=== PATIENT | male | born 1940 | race Caucasian/White ===

== ENCOUNTER 2016-11-06 05:46 | Inpatient (IN) | payer MEDICARE, OTHER ==
[2016-10-29 11:33] LABS: BASOPHILS 0.3 %; BASOPHILS ABSOLUTE 0.02 10/3/uL (0.0-0.16); EOSINOPHILS ABSOLUTE 0.34 10/3/uL (0.0-0.53); HEMATOCRIT 42.6 % (40.0-51.0); IMMATURE GRANULOCYTES 0.3 %; IMMATURE GRANULOCYTES ABSOLUTE 0.02 10/3/uL (0.0-0.11); LYMPHOCYTES 20.2 %; LYMPHOCYTES ABSOLUTE 1.38 10/3/uL (0.67-4.30); MEAN CORPUS HGB CONC 32.9 g/dL (32.0-36.0); MEAN CORPUSCULAR VOLUME 88.4 fL (80-100); MONOCYTES 9.8 %; MONOCYTES ABSOLUTE 0.67 10/3/uL (0.21-1.20); NEUTROPHILS 64.4 %; NEUTROPHILS ABSOLUTE 4.41 10/3/uL (2.02-8.40); RED CELL COUNT 4.82 10/6/uL (4.7-6.1); WHITE BLOOD CELLS 6.8 10/3/uL (4.5-10.5)
[2016-10-29 11:36] LABS: MANUAL DIFF NO %; PLATELET COUNT 148 10/3/uL (150-400)
[2016-10-29 11:39] LABS: INTERNATIONAL NORMAL RATI 1.1 UNITS (-); PROTIME (NOT ORD) 14.1 SEC (12.0-14.5)
[2016-10-29 12:01] LABS: % IRON SAT 36 % (20-50); A/G RATIO 1.1 (0.7-1.9); ALBUMIN 3.3 G/DL (3.5-5.0); ALKALINE PHOSPHATASE 153 U/L (45-117); BUN (BLOOD UREA NITROGEN) 19 MG/DL (6-23); CALCIUM, SERUM 8.6 MG/DL (8.5-10.4); CHLORIDE, SERUM 106 MMOL/L (96-112); CO2 (CARBON DIOXIDE) 26 MMOL/L (24-34); CREATININE 1.25 MG/DL (0.70-1.30); GFR AFRICAN AMERICAN 65 ML/MIN (>=60); GFR NON AFRICAN AMERICAN 56 ML/MIN (>=60); GLOBULIN 3.1 G/DL (2.5-4.1); GLUCOSE, SERUM 217 MG/DL (60-99); IRON BINDING CAPACITY 313 MCG/DL (250-450); IRON, SERUM 114 MCG/DL (35-150); POTASSIUM, SERUM 4.3 MMOL/L (3.5-5.3); SGOT(AST) 23 U/L (5-40); SGPT(ALT) 26 U/L (5-65); SODIUM, SERUM 141 MMOL/L (135-148); TOTAL BILIRUBIN 0.7 MG/DL (0-1.2); TOTAL PROTEIN 6.4 G/DL (6.0-8.5)
[2016-10-29 12:13] LABS: ASCORBIC ACID (UR NOT ORDER) NEG (NEG); BILIRUBIN, URINE NEGATIVE (NEG); KETONE, URINE NEGATIVE (NEG); LEUKOCYTE ESTERASE(NOT OR NEG (NEG); WBC (NOT ORDERED) (RFLEX) < 1 (0-5)
--- NOTE | ~2016-11-06 | OP ---
Record Of Operation [facility] [address] [place]. [address] NAME: MARCOS IBRAHIM : 42 STATUS : ADM IN PAT#: [id number] AGE: 76 ADM/REG DATE : 11/06/16 MR#: [id number] REPORT SERV DATE: 11/06/16 DICTATED BY: TERRI RAY DATE: 11/06/16 REPORT STATUS : Draft TRANSCRIBED BY: MODL DATE: 11/06/16 DATE OF PROCEDURE: 11/06/2016 PREOPERATIVE DIAGNOSES: 1. Coronary artery disease. 2. Acute on chronic, chronic systolic heart failure (ejection fraction of 30%). 3. History of previous transient ischemic attack. 4. Deep venous thrombosis with pulmonary embolism. 5. Type 2 qwn-ijckxpm-lvghvyhpe diabetes mellitus. 6. Left bundle branch block. 7. Obesity. POSTOPERATIVE DIAGNOSES: 1. Coronary artery disease. 2. Acute on chronic, chronic systolic heart failure (ejection fraction of 30%). 3. History of previous transient ischemic attack. 4. Deep venous thrombosis with pulmonary embolism. 5. Type 2 nec-uemrqxt-qvklqewmx diabetes mellitus. 6. Left bundle branch block. 7. Obesity. PROCEDURE PERFORMED: 1. Coronary artery bypass grafting x3, left internal mammary artery placed to left anterior descending, reverse saphenous vein graft placed to the first obtuse marginal, reverse saphenous vein graft placed to the terminal obtuse marginal vessel. 2. Endoscopic vein harvest, saphenous vein from the right thigh. 3. Transesophageal echocardiography. SURGEON: Terri Ray M.D. ASSISTANTS: Pramod Elizondo and Shaunna De La Fuente. ANESTHESIA: General with Dr. Miner. GREENHOUSE ASSISTANT: Jewel Rivera M.D. PRIMARY CARE PHYSICIAN: Robert Singer M.D. INDICATIONS: This is a 76-year-old gentleman, who was having possible TIAs last fall. He had been evaluated extensively with Neurology and was recently seen by Dr. Rivera. He had a left bundle branch that was new on electrocardiography. He underwent echocardiogram that demonstrated reduced ventricular function with ejection fraction of 30%. He was recommended to have a cardiac catheterization which was performed that demonstrated significant two- vessel coronary artery disease. The tight lesions in the circumflex and LAD system along with distal left main coronary stenosis. We were asked to see the patient for possible coronary artery bypass grafting. Carotid ultrasound study demonstrated grade 1 disease Record Of Operation [facility] [address] [place]. [address] NAME: MARCOS IBRAHIM : 42 STATUS : ADM IN PAT#: [id number] AGE: 76 ADM/REG DATE : 11/06/16 MR#: [id number] REPORT SERV DATE: 11/06/16 DICTATED BY: TERRI RAY DATE: 11/06/16 REPORT STATUS : Draft TRANSCRIBED BY: TYRELL DATE: 11/06/16 bilaterally. Reportedly, he had an MRI of the brain which showed no acute changes in May of last year. We discussed possible coronary bypass grafting with the patient and his family. After discussing the operation, its indications, risks, they wished to proceed. STS predicted mortality of 1.5% and morbidity and mortality of 15% were shared with the family. FINDINGS AT OPERATION: 1. Cross-clamp time of 70 minutes, total pump time 84 minutes. 2. The LAD was 1.75 mm heavily diseased vessel. A 3 mm RIDDLE was anastomosed to it with good runoff. 3. The first obtuse marginal was 2 mm and moderately diseased. A 4 mm RSVG was anastomosed to it with good runoff. 4. The terminal obtuse marginal vessel was 1.5 mm and moderately diseased. A 4 mm RSVG was anastomosed to it with good runoff. Unfortunately, this vein graft was not long enough to reach the ascending aorta, and therefore, it was piggybacked into the side of the vein graft going to the first obtuse marginal vessel. 5. This patient had extensively diseased coronary vessels. 6. The vein quality was okay in the thigh. There was areas of old thrombus attached to the sidewall of the vessel, however, there was good flow through all the grafts. 7. MONIKA demonstrated reduced ventricular function with no significant mitral or aortic valvular pathology. PATHOLOGIC SPECIMENS: None. DESCRIPTION OF PROCEDURE: The patient was brought to the operating suite, general anesthesia was induced, and airway was secured with an endotracheal tube. Lines were secured by Anesthesia. Wade catheter was placed. The patient's chest, abdomen, groin, and legs prepped with Hibiclens and ChloraPrep and draped with Ioban and sterile sheets. MONIKA probe was placed by Dr. Miner and examination was carried out in my attendance. There was anterolateral and posterior wall hypokinesis with no significant valvular pathology. The saphenous vein was harvested from the right thigh using endoscopic technique. Briefly, the vein was cut directly down upon through a 2 cm incision placed at the medial aspect of the right knee. Then, using VasoView trocars, the vessel was dissected from the surrounding subcutaneous tissue and fat. The side branches were identified, ligated, and divided with cautery. Once adequate length of vein had been dissected, a counter incision was made up in the groin and the vein was ligated, divided, and brought through the knee incision. The vein quality unfortunately was poor distally. There was old recanalized vein that was not really very good conduit for bypass material and this was removed. We continued to trim proximally on the vein until the lumen of the vein was at least 3 mm in diameter and there were no large plaque or evidence of old thrombus along the wall of the vessel. Then, a midline sternal incision was made and the sternum opened with a saw. The left hemithorax was elevated and the endothoracic fascia was incised. Side branch of the NIXON were clipped and divided. Once the NIXON was completely dissected, the patient was anticoagulated with heparin and chest tube was placed in the left pleural cavity. The NIXON was clipped and divided distally. There was good flow through the NIXON and its pedicle was Record Of Operation [facility] [id number] [facility] [place]. [address] NAME: MARCOS IBRAHIM : 42 STATUS : ADM IN [facility]#: [id number] AGE: 76 ADM/REG DATE : 11/06/16 MR#: [id number] REPORT SERV DATE: 11/06/16 DICTATED BY: TERRI RAY DATE: 11/06/16 REPORT STATUS : Draft TRANSCRIBED BY: MODL DATE: 11/06/16 infiltrated with papaverine. Next, the Emory retractor was placed in the pericardium over from the innominate vein to the diaphragm, where it was T'd and tacked to the side of the chest wall. Cannulation pursestring sutures were placed and cannulation was carried out in routine manner. A retrograde cardioplegia cannula was placed in the coronary sinus. When all was in readiness, the patient was placed on cardiopulmonary bypass. The distal targets were marked out on the heart as described in the findings. We searched for ramus intermedius vessel, but none was found. Then, a heart support was placed. The aorta was crossclamped and an initial dose cold blood cardioplegia solution was given in a combination of antegrade and retrograde fashion, then in a retrograde manner following proximal anastomoses. Following the first dose of cardioplegia, the heart was positioned for the first obtuse marginal graft. Arteriotomy was made. The vein graft was trimmed and anastomosed to it with 7-0 Prolene. The vein graft was measured to the left side of the ascending aorta where it was divided. We then positioned the heart for the terminal obtuse marginal graft. The terminal obtuse marginal bifurcated and we selected the largest of the two branches. Arteriotomy was made and the vein graft was trimmed and anastomosed to it with 7-0 Prolene. Unfortunately, this vein graft was not long enough to reach the ascending aorta. Therefore, it was piggybacked into the side of the vein graft going to the first obtuse marginal. A small venotomy was made and venovenous anastomosis was constructed with 7-0 Prolene. Then, the proximal end of the first obtuse marginal vessel graft was anastomosed to a 4.5 mm punch aortotomy with a running suture of 6-0 Prolene. Another dose of cardioplegia was given and warming was begun. We then positioned the heart for the LAD graft. Arteriotomy was made in the distal LAD. The NIXON was brought out of the left chest through a notch in the pericardium over the pulmonary artery. The LAD was very heavily diseased. The NIXON was opened and anastomosed to the LAD with running suture of 8-0 Prolene. The endothoracic fascia was tacked to the epicardium. The patient was placed in Trendelenburg and final dose of warm blood cardioplegia was given in a retrograde fashion. Ventricular and atrial pacing wires were placed. Following the last dose cardioplegia and deairing of the aorta, the aortic cross clamp was removed. The distal and proximal anastomoses were inspected and made hemostatic. Doppler demonstrated good flow through the grafts. Inotropic agents were started and the heart was paced in AV sequential fashion at a rate of 80. Ventilation was begun and when the heart demonstrated good contractility, it was allowed to fill and eject. When deairing was completed, the ascending aortic root vent was removed and these pursestring sutures tied and reinforced. The patient was weaned from cardiopulmonary bypass with inotropic support. The venous cannula was removed and these pursestring sutures tied. MONIKA examination demonstrated still reduced, but overall improved ventricular function. There was no significant valvular pathology. Record Of Operation [facility] [facility] [id number] [place]. [address] NAME: MARCOS IBRAHIM : 42 STATUS : ADM IN [facility]#: [id number] AGE: 76 ADM/REG DATE : 11/06/16 MR#: [id number] REPORT SERV DATE: 11/06/16 DICTATED BY: TERRI RAY DATE: 11/06/16 REPORT STATUS : Draft TRANSCRIBED BY: TYRELL DATE: 11/06/16 Protamine was administered by Anesthesia and following a period of hemodynamic stability the aortic cannula was removed and these pursestring sutures tied and reinforced. The patient continued to do well and the chest was irrigated copiously with saline. Meticulous hemostasis was obtained. Hemasorb was placed along the cut edge of the sternum. Once hemostasis was assured, the pericardium was draped over the anterior surface of heart and tacked into position. Doppler demonstrated good flow through the grafts following protamine administration. Then, chest tubes were placed and sternum was reapproximated with eight sternal wires. The clavipectoral fascia and linea alba were closed with #1 Stratafix as was the subcutaneous tissue. The skin was closed in subcuticular fashion. The patient tolerated the procedure well. There were no complications. Sponge and needle counts were correct. DISPOSITION: The patient was left intubated, sedated, and transported to the intensive care unit in a stable condition. ROCKY/TYRELL Terri Ray M.D. / [id number] CC: Isabel Barreto M.D. Robert Berglund, M.D.
--- NOTE | ~2016-11-06 | DS ---
Discharge Summary [facility] [address] [place]. [address] NAME: MARCOS IBRAHIM : 42 STATUS : DIS IN PAT#: [id number] AGE: 76 ADM/REG DATE : 11/06/16 MR#: [id number] REPORT SERV DATE: 11/19/16 DICTATED BY: TERRI RAY DATE: 11/18/16 REPORT STATUS : Draft TRANSCRIBED BY: MODMilo DATE: 11/18/16 Data Collection from hospitalization DISCHARGE DIAGNOSES: 1. Coronary artery disease, status post coronary artery bypass. 2. Diabetes mellitus. 3. Hypertension. 4. Gastroesophageal reflux disease. 5. Left bundle-branch block. 6. Smokeless tobacco use. CONSULTATIONS: Dr. Wayne Agudelo. PROCEDURES PERFORMED: Coronary artery bypass grafting x3 with RIDDLE to the LAD, reverse saphenous vein graft placed to the first obtuse marginal, reverse saphenous vein graft placed to the terminal obtuse marginal vessel, endoscopic vein harvest saphenous vein from the right thigh, and transesophageal echocardiography on 11/06/2016. DISCHARGE MEDICATIONS: Aspirin 81 mg daily, Lipitor 80 mg at bedtime, Coreg 12.5 mg twice a day, Plavix 75 mg daily, Vasotec 5 mg daily, Amaryl 1 mg twice a day, Poston 5/325 one tablet every 4 hours as needed, NitroQuick 0.4 mg sublingually as needed, Prilosec 20 mg twice a day as needed, Zofran 4 mg every 8 hours as needed, Paxil 40 mg at bedtime. He was instructed not to continue isosorbide. CONDITION AT DISCHARGE: Stable. DISPOSITION: The patient was discharged home on a low-cholesterol, low-sodium, 1800-calorie cardiac/diabetic diet with activities as instructed. He would follow up with me on 12/05/2016, he would follow up with Dr. Jewel Rivera on 11/29/2016, he would follow up with Dr. Gustavo Singer on 12/13/2016. HOSPITAL COURSE: This is a 76-year-old man, who has been having possible TIA last fall. He was extensively evaluated with Neurology and had recently seen Dr. Rivera. He has and left bundle-branch block that was new on electrocardiography. He underwent an echocardiogram that demonstrated reduced ventricular function with ejection fraction of 30%. It was felt that he should undergo a cardiac catheterization which demonstrated significant two-vessel coronary artery disease with tight lesions in the circumflex and LAD system along with distal left main coronary stenosis. It was felt that the patient would need to undergo coronary artery bypass grafting. He was admitted to the hospital at this time for further evaluation and treatment. Upon admission, he was taken to the operating room where he underwent the above-mentioned procedure. He tolerated this well. There were no complications. On postop day #1, he did complain of some pain at the left pleural chest tube site. Coreg was restarted, diuresis was begun. White blood cell count was 16.2. He was seen by Dr. Wayne Agudelo. His chest was sore. Creatinine level was 1.05. He had no edema. Supportive care continued. Postop amiodarone would be given. He was on aspirin, Plavix, and statin. He was receiving metoprolol and Coreg. His blood pressure was stable, we would restart enalapril. Discharge Summary [address] [address] NAME: MARCOS IBRAHIM : 42 STATUS : DIS IN PAT#: [id number] AGE: 76 ADM/REG DATE : 11/06/16 MR#: [id number] REPORT SERV DATE: 11/19/16 DICTATED BY: TERRI RAY DATE: 11/18/16 REPORT STATUS : Draft TRANSCRIBED BY: TYRELL DATE: 11/18/16 On 11/08/2016, he had no shortness of breath. He was receiving an insulin drip. He was in a sinus rhythm. Enalapril would be restarted once his blood pressure was stable. We continued his Coreg, aspirin, Plavix, and statin. The next day, he was encouraged to mobilize. He continued to do well. On 11/10/2016, he had no new complaints. He did develop paroxysmal atrial fibrillation, but went back into a sinus rhythm. He did have some nausea, but otherwise felt well. Enalapril was resumed. Discharge instructions were given. Due to his improved and stable condition, he was discharged home with the above-stated instructions. Information collected by: Mamie Lomeli I submit the above information as my discharge summary. MIRELA/TYRELL Terri Ray M.D. / [id number] CC: Isabel Barreto M.D. Gregory Keith Bruce, M.D.
[~2016-11-06 05:46] MED LIST: AMARYL1 MG PO; ASAB PO; COREG12 PO; ISORDTAB5 PO; KLONO5 PO; L40 PO; LIPITOR80 MG PO; PAXIL40 MG PO; PLAVIX PO; PRILO PO; VASOTEC5 PO; VICODINTAB PO; XARELTO15 MG PO
[2016-11-06 07:00] LABS: TEG - ANGLE 69.5 DEG (53-72); TEG - COAGULATION INDEX 1.5 (-3 TO 3); TEG - MAXIMUM AMPLITUDE 64.7 MM (50-70); TEG - RATE 5.1 MIN (5.0-10.0); TEG PLAVIX/EFFIENT/TICLID(ADP) 9.6 % INHIB (< 40)
[2016-11-06 07:01] LABS: MAX AMP (ADP) 61.9 MM (35-68)
[2016-11-06 13:03] LABS: BE (BASE EXCESS) -3.5 MEQ/L (0 +/- 2.5); CARBOXYHEMOGLOBIN 0.2 % (0-3); HCO3 (ACTUAL BICARBONATE) 21.7 MEQ/L (23-27); HEMOBLOGIN CONTENT 11.8 G/DL (14-18); INSTRUMENT SERIAL # 11843; METHEMOGLOBIN 0.6 % (0-3); MODE SIMV; O2 CONTENT 16.1 VOL% (18-24); OPERATOR ID 13624; PCO2 (CO2 TENSION) 40 MMHG (35-45); PO2 (O2 TENSION) 110 MMHG (79-93); SAMPLE Arterial; TIDAL VOLUME 650 ML; pH 7.35 (7.37-7.43)
[2016-11-06 13:36] LABS: HEMOGLOBIN 11.2 g/dL (13.6-17.8)
[2016-11-06 13:41] LABS: INTERNATIONAL NORMAL RATI 1.4 UNITS (-); PARTIAL THROMBO TIME 33.3 SEC (22.5-37.2)
[2016-11-06 13:42] LABS: PROTIME (NOT ORD) 17.2 SEC (12.0-14.5)
[2016-11-06 13:48] LABS: HEMATOCRIT 33.3 % (40.0-51.0); PLATELET COUNT 94 10/3/uL (150-400)
[2016-11-06 13:49] LABS: BUN (BLOOD UREA NITROGEN) 16 MG/DL (6-23); CALCIUM, SERUM 9.2 MG/DL (8.5-10.4); CHLORIDE, SERUM 113 MMOL/L (96-112); CO2 (CARBON DIOXIDE) 24 MMOL/L (24-34); CREATININE 1.16 MG/DL (0.70-1.30); GFR AFRICAN AMERICAN 71 ML/MIN (>=60); GFR NON AFRICAN AMERICAN 61 ML/MIN (>=60); GLUCOSE, SERUM 91 MG/DL (60-99); POTASSIUM, SERUM 3.5 MMOL/L (3.5-5.3); SODIUM, SERUM 144 MMOL/L (135-148)
[2016-11-06 19:53] LABS: HEMATOCRIT 33.4 % (40.0-51.0); HEMOGLOBIN 11.2 g/dL (13.6-17.8)
[2016-11-06 20:03] LABS: POTASSIUM, SERUM 4.3 MMOL/L (3.5-5.3)
[2016-11-06 23:14] LABS: BE (BASE EXCESS) -5.3 MEQ/L (0 +/- 2.5); CARBOXYHEMOGLOBIN 0.3 % (0-3); DEVICE NC; HCO3 (ACTUAL BICARBONATE) 20.9 MEQ/L (23-27); HEMOBLOGIN CONTENT 11.8 G/DL (14-18); INSTRUMENT SERIAL # 11843; METHEMOGLOBIN 0.5 % (0-3); O2 CONTENT 15.6 VOL% (18-24); OPERATOR ID 31061; PCO2 (CO2 TENSION) 43 MMHG (35-45); PO2 (O2 TENSION) 80 MMHG (79-93); SAMPLE Arterial
[2016-11-07 04:29] LABS: BASOPHILS 0.1 %; BASOPHILS ABSOLUTE 0.01 10/3/uL (0.0-0.16); EOSINOPHILS 0 %; HEMATOCRIT 33.8 % (40.0-51.0); HEMOGLOBIN 11.1 g/dL (13.6-17.8); IMMATURE GRANULOCYTES 0.4 %; IMMATURE GRANULOCYTES ABSOLUTE 0.06 10/3/uL (0.0-0.11); LYMPHOCYTES 5.9 %; LYMPHOCYTES ABSOLUTE 0.96 10/3/uL (0.67-4.30); MEAN CORPUS HGB CONC 32.8 g/dL (32.0-36.0); MEAN CORPUSCULAR HEMOGLOB 29.6 pg (26.0-34.0); MEAN CORPUSCULAR VOLUME 90.1 fL (80-100); MEAN PLATELET VOLUME 10.3 fL (9.2-13.0); MONOCYTES 7.2 %; MONOCYTES ABSOLUTE 1.17 10/3/uL (0.21-1.20); NEUTROPHILS 86.4 %; NEUTROPHILS ABSOLUTE 14.04 10/3/uL (2.02-8.40); PLATELET COUNT 104 10/3/uL (150-400); RBC DISTRIBUTION WIDTH 13.9 % (12.0-16.0)
[2016-11-07 04:32] LABS: RED CELL COUNT 3.75 10/6/uL (4.7-6.1); WHITE BLOOD CELLS 16.2 10/3/uL (4.5-10.5)
[2016-11-07 04:33] LABS: MANUAL DIFF NO %
[2016-11-07 04:40] LABS: BUN (BLOOD UREA NITROGEN) 18 MG/DL (6-23); CHLORIDE, SERUM 116 MMOL/L (96-112); CO2 (CARBON DIOXIDE) 24 MMOL/L (24-34); CREATININE 1.05 MG/DL (0.70-1.30); GFR AFRICAN AMERICAN 80 ML/MIN (>=60); GFR NON AFRICAN AMERICAN 69 ML/MIN (>=60); POTASSIUM, SERUM 4.6 MMOL/L (3.5-5.3); SODIUM, SERUM 147 MMOL/L (135-148)
[2016-11-07 04:50] LABS: CALCIUM, SERUM 8.2 MG/DL (8.5-10.4); GLUCOSE, SERUM 106 MG/DL (60-99)
[2016-11-07 16:14] LABS: HEMATOCRIT 33.7 % (40.0-51.0); HEMOGLOBIN 11.4 g/dL (13.6-17.8)
[2016-11-07 16:21] LABS: POTASSIUM, SERUM 4.2 MMOL/L (3.5-5.3)
[2016-11-08 02:59] LABS: BASOPHILS 0.1 %; BASOPHILS ABSOLUTE 0.01 10/3/uL (0.0-0.16); EOSINOPHILS 0.1 %; EOSINOPHILS ABSOLUTE 0.01 10/3/uL (0.0-0.53); HEMATOCRIT 33.6 % (40.0-51.0); IMMATURE GRANULOCYTES 0.4 %; IMMATURE GRANULOCYTES ABSOLUTE 0.06 10/3/uL (0.0-0.11); LYMPHOCYTES ABSOLUTE 1.61 10/3/uL (0.67-4.30); MEAN CORPUS HGB CONC 32.7 g/dL (32.0-36.0); MEAN CORPUSCULAR HEMOGLOB 29.6 pg (26.0-34.0); MEAN CORPUSCULAR VOLUME 90.3 fL (80-100); MEAN PLATELET VOLUME 10.3 fL (9.2-13.0); MONOCYTES ABSOLUTE 1.94 10/3/uL (0.21-1.20); NEUTROPHILS 77.4 %; NEUTROPHILS ABSOLUTE 12.54 10/3/uL (2.02-8.40); PLATELET COUNT 134 10/3/uL (150-400); RBC DISTRIBUTION WIDTH 14.6 % (12.0-16.0); RED CELL COUNT 3.72 10/6/uL (4.7-6.1); WHITE BLOOD CELLS 16.2 10/3/uL (4.5-10.5)
[2016-11-08 03:00] LABS: MANUAL DIFF NO %
[2016-11-08 03:21] LABS: BUN (BLOOD UREA NITROGEN) 24 MG/DL (6-23); CHLORIDE, SERUM 110 MMOL/L (96-112); CO2 (CARBON DIOXIDE) 27 MMOL/L (24-34); CREATININE 1.09 MG/DL (0.70-1.30); GFR AFRICAN AMERICAN 77 ML/MIN (>=60); GFR NON AFRICAN AMERICAN 66 ML/MIN (>=60); GLUCOSE, SERUM 101 MG/DL (60-99); POTASSIUM, SERUM 4.3 MMOL/L (3.5-5.3); SODIUM, SERUM 144 MMOL/L (135-148)
[2016-11-09 06:21] LABS: BASOPHILS 0.2 %; BASOPHILS ABSOLUTE 0.02 10/3/uL (0.0-0.16); EOSINOPHILS 1.3 %; EOSINOPHILS ABSOLUTE 0.13 10/3/uL (0.0-0.53); HEMATOCRIT 34.1 % (40.0-51.0); HEMOGLOBIN 11.3 g/dL (13.6-17.8); IMMATURE GRANULOCYTES 0.3 %; IMMATURE GRANULOCYTES ABSOLUTE 0.03 10/3/uL (0.0-0.11); LYMPHOCYTES 18.6 %; LYMPHOCYTES ABSOLUTE 1.83 10/3/uL (0.67-4.30); MEAN CORPUS HGB CONC 33.1 g/dL (32.0-36.0); MEAN CORPUSCULAR HEMOGLOB 29.3 pg (26.0-34.0); MEAN CORPUSCULAR VOLUME 88.3 fL (80-100); MEAN PLATELET VOLUME 10.3 fL (9.2-13.0); MONOCYTES 15.2 %; MONOCYTES ABSOLUTE 1.49 10/3/uL (0.21-1.20); NEUTROPHILS 64.4 %; NEUTROPHILS ABSOLUTE 6.33 10/3/uL (2.02-8.40); PLATELET COUNT 109 10/3/uL (150-400); RBC DISTRIBUTION WIDTH 14.3 % (12.0-16.0); RED CELL COUNT 3.86 10/6/uL (4.7-6.1); WHITE BLOOD CELLS 9.8 10/3/uL (4.5-10.5)
[2016-11-09 06:30] LABS: MANUAL DIFF NO %
[2016-11-09 06:32] LABS: CALCIUM, SERUM 8.7 MG/DL (8.5-10.4); CHLORIDE, SERUM 102 MMOL/L (96-112); CO2 (CARBON DIOXIDE) 28 MMOL/L (24-34); CREATININE 1.25 MG/DL (0.70-1.30); GFR AFRICAN AMERICAN 65 ML/MIN (>=60); GFR NON AFRICAN AMERICAN 56 ML/MIN (>=60); POTASSIUM, SERUM 4.2 MMOL/L (3.5-5.3); SODIUM, SERUM 141 MMOL/L (135-148)
[2016-11-09 06:34] LABS: BUN (BLOOD UREA NITROGEN) 28 MG/DL (6-23); GLUCOSE, SERUM 169 MG/DL (60-99)
[2016-11-10 06:02] LABS: BASOPHILS 0.2 %; BASOPHILS ABSOLUTE 0.02 10/3/uL (0.0-0.16); EOSINOPHILS 3.1 %; EOSINOPHILS ABSOLUTE 0.26 10/3/uL (0.0-0.53); HEMATOCRIT 32.9 % (40.0-51.0); HEMOGLOBIN 11.4 g/dL (13.6-17.8); IMMATURE GRANULOCYTES 0.2 %; IMMATURE GRANULOCYTES ABSOLUTE 0.02 10/3/uL (0.0-0.11); LYMPHOCYTES 16.6 %; LYMPHOCYTES ABSOLUTE 1.39 10/3/uL (0.67-4.30); MANUAL DIFF NO %; MEAN CORPUS HGB CONC 34.7 g/dL (32.0-36.0); MEAN CORPUSCULAR HEMOGLOB 29.7 pg (26.0-34.0); MEAN CORPUSCULAR VOLUME 85.7 fL (80-100); MEAN PLATELET VOLUME 10.2 fL (9.2-13.0); MONOCYTES 14.6 %; MONOCYTES ABSOLUTE 1.22 10/3/uL (0.21-1.20); NEUTROPHILS 65.3 %; NEUTROPHILS ABSOLUTE 5.45 10/3/uL (2.02-8.40); PLATELET COUNT 133 10/3/uL (150-400); RED CELL COUNT 3.84 10/6/uL (4.7-6.1); WHITE BLOOD CELLS 8.4 10/3/uL (4.5-10.5)
[2016-11-10 06:15] LABS: BUN (BLOOD UREA NITROGEN) 23 MG/DL (6-23); CALCIUM, SERUM 8.4 MG/DL (8.5-10.4); CHLORIDE, SERUM 104 MMOL/L (96-112); CO2 (CARBON DIOXIDE) 31 MMOL/L (24-34); CREATININE 1.17 MG/DL (0.70-1.30); GFR AFRICAN AMERICAN 70 ML/MIN (>=60); GFR NON AFRICAN AMERICAN 61 ML/MIN (>=60); GLUCOSE, SERUM 155 MG/DL (60-99); POTASSIUM, SERUM 3.9 MMOL/L (3.5-5.3); SODIUM, SERUM 141 MMOL/L (135-148)
[2016-11-10] MEDS ORDERED: NORCO1 TA1 PO (11:45)
[2016-11-10] MEDS ORDERED: NITROQUICK0.4 MG SL (11:45)
[2016-11-10] MEDS ORDERED: ZOFRAN4 PO (11:45)
[2017-03-27] MEDS ORDERED: XARELTO20 MG PO (11:05)
== END 2016-11-10 15:38 | disposition home or self-care (01) | DRG 235 ==
LOC: SDC/OF 05:46 → CVICU 10:57 → 5NO 11-08 14:43
PROVIDERS: Nurse Practitioner Family; Thoracic Surgery (Cardiothoracic Vascular Surgery)
PROC: 06BP4ZZ Excision of Right Saphenous Vein, Percutaneous Endoscopic Approach (ICD-10-PCS; 2016-11-06)
PROC: B246ZZ4 Ultrasonography of Right and Left Heart, Transesophageal (ICD-10-PCS; 2016-11-06)
PROC: 5A1221Z Performance of Cardiac Output, Continuous (ICD-10-PCS; 2016-11-06)
PROC: 021109W Bypass Coronary Artery, Two Arteries from Aorta with Autologous Venous Tissue, Open Approach (ICD-10-PCS; principal; 2016-11-06 07:30)
PROC: 02100Z9 Bypass Coronary Artery, One Artery from Left Internal Mammary, Open Approach (ICD-10-PCS; 2016-11-06 07:30)
DX: I25.10 Atherosclerotic heart disease of native coronary artery without angina pectoris (principal); I50.23 Acute on chronic systolic (congestive) heart failure; E11.9 Type 2 diabetes mellitus without complications; I48.0 Paroxysmal atrial fibrillation; Z86.73 Personal history of transient ischemic attack (TIA), and cerebral infarction without residual deficits; Z86.718 Personal history of other venous thrombosis and embolism; I44.7 Left bundle-branch block, unspecified; E66.9 Obesity, unspecified; Z68.29 Body mass index [BMI] 29.0-29.9, adult; E78.5 Hyperlipidemia, unspecified; Z86.711 Personal history of pulmonary embolism; I11.0 Hypertensive heart disease with heart failure; Z79.84 Long term (current) use of oral hypoglycemic drugs
CPT/HCPCS: 36415; 71010; 71020; 80048; 80053; 81001; 82330; 82803; 82805; 82947; 82962; 83036; 83540; 83550; 83735; 84132; 84295; 85014; 85018; 85025; 85049; 85347; 85384; 85576; 85576-59; 85610; 85730; 86850; 86900; 86901; 86920; 87641; 93005; 93312; 93320; 93325; 94002; 94640; 94660; 94667; 94770; A9270-GY; C1713; C1751; C1769; C1894; J0690; J1644; J2150; J2250; J2370; J2405; J2440; J2720; J2765; J2795; J2930; J3010; J3475; J3480; P9045; P9047